=== PATIENT | female | born 1965 | race Caucasian/White ===

== ENCOUNTER 2017-07-16 15:49 | Emergency (ER) | payer MEDICAID ==
[~2017-07-16] VITALS: Ht 162.6 cm; Wt 70.9 kg
[~2017-07-16 15:49] MED LIST: ONDA4TAB12 PO
[2017-07-16 15:50] VITALS: BP 149/86
[2017-07-16 16:07] LABS: BASOPHILS % (AUTO) 0.5 % (0-1); EOSINOPHILS # (AUTO) 0.1 X10'3 (0-0.9); EOSINOPHILS % (AUTO) 1.2 % (0-6); HEMATOCRIT 38.9 % (35.0-45.0); HEMOGLOBIN 13.2 g/dl (12.0-16.0); LYMPHOCYTES % (AUTO) 28.7 % (21-51); MEAN CORPUSCULAR HEMOGLOBIN 28.5 PG (27.0-31.0); MEAN CORPUSCULAR VOLUME 83.8 FL (78-98); MEAN PLATELET VOLUME 7.5 FL (7.4-10.4); MONOCYTES # (AUTO) 0.3 X10'3 (0-0.9); MONOCYTES % (AUTO) 5.1 % (2-12); NEUTROPHILS # (AUTO) 4.4 X10'3 (1.8-7.7); NEUTROPHILS % (AUTO) 64.5 % (42-75); PLATELET COUNT 291 X10'3 (140-440); RED BLOOD COUNT 4.63 X10'6 (4.20-5.60); WHITE BLOOD COUNT 6.8 X10'3 (4.5-11.0)
[2017-07-16 16:23] LABS: ALANINE AMINOTRANSFERASE 34 U/L (12-78); ALBUMIN 3.7 G/DL (3.4-5.0); ALBUMIN/GLOBULIN RATIO 0.9 (1.1-1.5); ALKALINE PHOSPHATASE 116 IU/L (46-116); ANION GAP 6 (8-16); ASPARTATE AMINO TRANSFERASE 33 U/L (10-37); BILIRUBIN,TOTAL 0.3 MG/DL (0.1-1.0); BLOOD UREA NITROGEN 13 MG/DL (7-18); BUN/CREATININE RATIO 14.6 (6.6-38.0); CALCIUM 9.1 MG/DL (8.5-10.1); CHLORIDE 106 MMOL/L (99-107); CREATININE 0.89 MG/DL (0.40-0.90); GLUCOSE 99 MG/DL (70-104); SODIUM 143 MMOL/L (135-145); TOTAL CARBON DIOXIDE 30.9 MMOL/L (24-32); TOTAL PROTEIN 7.7 G/DL (6.4-8.2); eGFR 67 ML/MIN
[2017-07-16 16:29] LABS: PARTIAL THROMBOPLASTIN TIME 27 SECONDS (22-32); PROTHROMBIN TIME 10.2 SECONDS (9.0-12.0)
[2017-07-16] MEDS ORDERED: LIDOcaine Viscous 15ml cup MM PRN (18:20)
[2017-07-16] MEDS ORDERED: mag hydrox/Alum hydrox/simeth 30ml oral suspension PO ONE (18:20)
[2017-07-16] MEDS ORDERED: sucralfate 1gm/10ml UD suspension PO STA (18:20)
[2017-07-16] MEDS ORDERED: SUCR1ORA2 PO (18:29)
== END 2017-07-16 19:25 | disposition home or self-care (01) ==
LOC: ER 15:49
DX: K29.00 Acute gastritis without bleeding (principal); R07.9 Chest pain, unspecified; Z90.49 Acquired absence of other specified parts of digestive tract; Z88.1 Allergy status to other antibiotic agents; Z88.5 Allergy status to narcotic agent; Z91.040 Latex allergy status; Z56.0 Unemployment, unspecified
CPT/HCPCS: 36415; 71045; 80053; 84484; 85025; 85610; 85730; 93005; 99285

== ENCOUNTER 2017-08-15 12:46 | Emergency (ER) | payer MEDICAID ==
[~2017-08-15] VITALS: Ht 162.6 cm; Wt 69.0 kg
[~2017-08-15 12:46] MED LIST changes: +SUCR1ORA2 PO
[2017-08-15 13:05] VITALS: BP 129/86
[2017-08-15] MEDS ORDERED: ibuprofen tablet 400 MG TABLET PO ONE (13:20)
[2017-08-15] MEDS ORDERED: acetaminophen 325mg tablet PO ONE (13:20)
== END 2017-08-15 14:36 | disposition home or self-care (01) ==
LOC: ER 12:47
DX: M25.512 Pain in left shoulder (principal); M25.571 Pain in right ankle and joints of right foot; Z90.49 Acquired absence of other specified parts of digestive tract; Z56.0 Unemployment, unspecified; Z91.040 Latex allergy status; Z88.5 Allergy status to narcotic agent; W10.9XXA Fall (on) (from) unspecified stairs and steps, initial encounter; Y93.89 Activity, other specified; Y92.89 Other specified places as the place of occurrence of the external cause; Y99.8 Other external cause status
CPT/HCPCS: 70450; 73030; 73610; 73620; 99284

== ENCOUNTER 2023-10-09 05:22 | Emergency (ER) | payer MEDICAID ==
[~2023-10-09] VITALS: Ht 157.5 cm; Wt 75.0 kg
[2023-10-09 05:26] VITALS: TEMP 98.4
[2023-10-09] MEDS: ketorolac tromethamine 15mg/ml inj. IM ONE (06:15)
[2023-10-09] MEDS ORDERED: DOXY150T8 PO (06:17)
[2023-10-09 06:33] VITALS: BP 148/90; PULSE 80; RESP 16; O2SAT 95
== END 2023-10-09 06:33 | disposition home or self-care (01) ==
LOC: ER 05:23
DX: K08.89 Other specified disorders of teeth and supporting structures (principal); Z91.041 Radiographic dye allergy status; Z91.040 Latex allergy status; Z88.5 Allergy status to narcotic agent; Z79.899 Other long term (current) drug therapy; Z90.49 Acquired absence of other specified parts of digestive tract; Z98.890 Other specified postprocedural states; Z87.891 Personal history of nicotine dependence
CPT/HCPCS: 96372; 99283; J1885